=== PATIENT | male | born 2000 | race Caucasian/White ===

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

== ENCOUNTER 2019-03-12 22:33 | Inpatient (IN) | payer OTHER ==
[~2019-03-12] VITALS: Ht 167.6 cm; Wt 51.0 kg
[2019-03-12 22:41] VITALS: Ht 167.6 cm; Wt 51.0 kg
--- NOTE | 2019-03-12 23:17 | NUR ---
PT PRESENTS TO ER TODAY WITH C/O OF EPISTAXIS FOR APPROX 3 DAYS. PT STATES THAT HE HAS BEEN HAVING EPISODES OF A LIGHT AMOUNT OF DARK RED DRAINAGE FROM HIS NOSE. PT ALSO COMPLAINING OF SORE THROAT AND NASAL CONGESTION. PT DENIES ANY PAIN AT THIS TIME. PT IS A/O X4. RESP ARE EQUAL AND UNLABORED. NO ACUTE DISTRESS NOTED.
[2019-03-12 23:29] LABS: RED CELL DISTRIBUTION WIDTH 14.2 % (11.5-14.5)
[2019-03-12 23:45] LABS: MONOCYTE 1 % (0-7); SEGMENTED NEUTROPHILS 12 % (37-75)
[2019-03-12 23:46] LABS: rbc morphology (normal/abnorm) NORMAL (NORMAL)
[2019-03-12 23:47] LABS: PLATELET MORPHOLOGY PLATELETS DECREASED
[2019-03-12 23:50] LABS: PLATELET COUNT 13 x10^3mcL (130-400)
--- NOTE | 2019-03-13 00:42 | NUR ---
FAMILY REQUESTING RACHEL PAN SPEAK WITH THEIR INFECTIOUS DISEASE MD.
--- NOTE | 2019-03-13 00:43 | NUR ---
RACHEL PAN ON THE PHONE WITH PTS INFECTIOUS DISEASE MD
--- NOTE | 2019-03-13 00:52 | NUR ---
FAMILY AND PT AGREED TO STAY AND WILL BE ADMITTED FOR TRANSFSION
--- NOTE | 2019-03-13 00:53 | NUR ---
RACHEL PAN MADE AWARE THAT PT IS TACHY AT 129. NO NEW ORDERS AT THIS TIME
--- NOTE | 2019-03-13 01:23 | NUR ---
PTS IVS IN PLACE. AWAITING BLOOD FOR TRANSFUSION.
--- NOTE | 2019-03-13 02:29 | NUR ---
PLATELETS STARTED VITALS WNL (SEE VITALS) NAD PRIOR TO ADMINISTRATION CONSENT FORM SIGNED. CROSS MATCH CONFIRMED WITH NEL LONGORIA
[2019-03-13 02:39] LABS: MAGNESIUM 1.9 mg/dL (1.8-2.4); PHOSPHOROUS 4.4 mg/dL (2.5-4.9)
--- NOTE | 2019-03-13 02:45 | NUR ---
PT TOLERATING PLATELETS WELL. NO ITCHINIESS, SOB OR DISTRESS NOTED AT THIS ITME
--- NOTE | 2019-03-13 03:07 | NUR ---
REPORT GIVEN TO ZACHERY LONGORIA
--- NOTE | 2019-03-13 03:30 | NUR ---
PATIENT RECEIVED FROM ER AWAKE, ALERT, ORIENTED X4 VIA GUERNEY DUE TO COMPLAIN OF NOSE BLEED X3 DAYS. ONGOING PLATELETS TRANSFUSION AT THE RIGHT ANTECUBITAL AREA. RESPIRATION EVEN AND UNLABORED, ON ROOM AIR. NO GI COMPLAINTS NOTED, LBM 03/12/2019. VOIDING FREELY WITHOUT DIFFICULTY. NO EDEMA NOTED. SKIN DRY AND INTACT, TATTOO ON THE LEFT FOREARM AND RIGHT SHOULDER. DENIES PAIN AT THIS TIME. ON TELE #[phone]. WILL CONTINUE TO MONITOR.
[2019-03-13 03:35] VITALS: BP 119/77
--- NOTE | 2019-03-13 04:30 | NUR ---
COMPLETED 1ST UNIT OF PLATELETS. VITAL SIGNS WNL. NO TRANSFUSION REACTION NOTED.
--- NOTE | 2019-03-13 05:10 | NUR ---
STARTED 2ND UNIT OF PLATELETS. VITAL SIGNS WNL. WILL CONTINUE TO MONIOR.
[2019-03-13 07:02] LABS: CALCIUM 8.7 mg/dL (8.5-10.1); CARBON DIOXIDE 29.7 mmol/L (21-32); CHLORIDE SERUM 109 mmol/L (98-107); CREATININE SERUM 1.1 mg/dL (0.7-1.3); GFR1 > 60 mL/min; GLUCOSE SERUM 100 mg/dL (74-106); POTASSIUM SERUM 3.8 mmol/L (3.5-5.1); SODIUM SERUM 147 mmol/L (136-145)
--- NOTE | 2019-03-13 07:15 | NUR ---
RECEIVED PT RESTING IN BED. NO ACUTE DISTRESS. AAOX4. RESP EVEN AND UNLABORED ON RA. WITH COTTON BALL TO R EYE SOCKET. NO C/O EPISTAXIS. PLATELETS INFUSING TO RAC AT THIS TIME, NO ADVERSE REACTIONS NOTED. IV TO LAC, NO REDNESS OR SWELLING. VISITOR AT BEDSIDE. BED IN LOW POSITION, CALL LIGHT WITHIN REACH. WILL CONTINUE TO MONITOR.
[2019-03-13 07:40] LABS: RED CELL DISTRIBUTION WIDTH 14.2 % (11.5-14.5)
[2019-03-13 07:50] VITALS: BP 116/77
--- NOTE | 2019-03-13 07:50 | NUR ---
PLATELET INFUSION FINISHED. NO ADVERSE REACTIONS NOTED. VSS. PT NOW EATING BREAKFAST. CALL LIGHT WITHIN REACH. WILL CONTINUE TO MONITOR.
[2019-03-13 08:01] VITALS: BP 109/66
[2019-03-13 08:20] LABS: PLATELET COUNT 33 x10^3mcL (130-400)
--- NOTE | 2019-03-13 09:17 | NUR ---
PT C/O PAIN TO LAC IV SITE. IV DC'D WITH CATHETER INTACT.
[2019-03-13 10:48] VITALS: BP 109/66
[2019-03-13 11:51] VITALS: BP 127/84
[2019-03-13 11:52] LABS: ATYPICAL LYMPH 5 %; BAND NEUTROPHIL 2 % (0-10); MONOCYTE 2 % (0-7); SEGMENTED NEUTROPHILS 13 % (37-75)
[2019-03-13 11:53] LABS: ovalocyte/elliptocyte 1+; rbc morphology (normal/abnorm) ABNORMAL (NORMAL)
[2019-03-13 11:54] LABS: PLATELET MORPHOLOGY PLATELETS DECREASED
--- NOTE | 2019-03-13 13:07 | NUR ---
PT DISCHARGED TO HOME IN NO ACUTE DISTRESS. AWAKE, ALERT, AND ORIENTED. VSS. AMBULATORY. DISCHARGE EDUCATION PROVIDED, PT VERBALIZED UNDERSTANDING. INSTRUCTED PT TO FOLLOW UP WITH PCP. IV DC'D WITH CATHETER INTACT. TELE REMOVED. PT REFUSED TO HAVE PICTURE TAKEN OF RIGHT EYE. BELONGINGS WITH PT. SANGEETHA CASTREJON ACCOMPANIED PT TO LOBBY.
== END 2019-03-13 13:07 | disposition home or self-care (01) | DRG 835 ==
LOC: ED 22:33 → DU 03-13 02:31
PROVIDERS: Specialist; ADMIT Internal Medicine
PROC: 30233N1 Transfusion of Nonautologous Red Blood Cells into Peripheral Vein, Percutaneous Approach (ICD-10-PCS; principal; 2019-03-13)
DX: C91.02 Acute lymphoblastic leukemia, in relapse (principal); D61.818 Other pancytopenia; Z68.1 Body mass index [BMI] 19.9 or less, adult; D46.9 Myelodysplastic syndrome, unspecified; R04.0 Epistaxis; R58 Hemorrhage, not elsewhere classified; Z92.21 Personal history of antineoplastic chemotherapy
CPT/HCPCS: G0378; J7030; J7050; P9035; Q0092